=== PATIENT | male | born 1995 | race Caucasian/White ===

== ENCOUNTER 2017-08-19 18:25 | Emergency (ER) | payer SELFPAY, OTHER ==
[2017-08-19] MEDS: KETOROLAC 30 MG INJ IV (19:26)
[2017-08-19] MEDS: PROPOFOL 200 MG INJ IV (20:01)
[2017-08-19] MEDS: KETAMINE 500 MG INJ IV (20:01)
== END 2017-08-19 21:40 | disposition home or self-care (01) ==
LOC: E/R 21:40
DX: S43.015A Anterior dislocation of left humerus, initial encounter (principal); W18.30XA Fall on same level, unspecified, initial encounter; Y92.322 Soccer field as the place of occurrence of the external cause
CPT/HCPCS: 23650; 73030; 96374; 99285-25